=== PATIENT | female | born 1995 | race Caucasian/White ===

== ENCOUNTER 2024-11-10 12:56 | Outpatient (REF) | payer OTHER, SELFPAY ==
[2024-11-10 15:24] LABS: Abs Immature Grans 0.02 10^3/uL (0.0-0.06); Absolute Basophil Count 0.03 10^3/uL (0.0-0.2); Absolute Eosinophil Count 0.05 10^3/uL (0.0-0.7); Absolute Lymphocyte Count 2.28 10^3/uL (1.2-3.4); Absolute Neutrophil Count 3.67 10^3/uL (1.2-6.7); Basophils % 0.5 %; Eosinophils % 0.8 %; HCT 36.8 % (36.0-46.0); HGB 12.9 g/dL (11.2-15.7); Immature Grans % 0.3 %; Lymphocytes % 35.3 %; MCH 32.6 pg (27.0-33.0); MCHC 35.1 % (32.0-36.0); MCV 93 fL (80-95); MPV 10.7 fL (8.0-11.0); Monocytes % 6.2 %; Neutrophils % 56.9 %; Platelet Count 258 10^3/uL (130-400); RBC 3.96 10^6/uL (3.93-5.22); RDW 11.3 % (11.7-14.6); RDW-SD 38.8 fL; WBC 6.45 10^3/uL (4.4-10.8)
[2024-11-10 16:10] LABS: ALT 15 U/L (14-59); AST 16 U/L (15-37); Albumin 4.2 g/dL (3.4-5.0); Alkaline Phosphatase 50 U/L (46-116); Anion Gap 9.9 mmol/L (3-11); BUN 10 mg/dL (7-18); Bilirubin, Total 0.66 mg/dL (0.2-1.0); CO2 28.1 mmol/L (21.0-32.0); CREATININE 0.8 mg/dL (0.55-1.02); Calcium 9.3 mg/dL (8.5-10.1); Calculated LDL 106 mg/dL (<100); Chloride 103 mmol/L (98-107); Cholesterol 180 mg/dL (<200); Estimated GFR 101.59 (mL/min/1.73m2); Glucose 85 mg/dL (74-106); HDL Cholesterol 60 mg/dL (40-60); Potassium 3.9 mmol/L (3.5-5.1); Sodium 141 mmol/L (136-145); TSH (W/Ref FT4) 1.41 uIU/mL (0.36-3.74); Total Protein 7.4 g/dL (6.4-8.2); Triglyceride 71 mg/dL (<150); Vitamin D 25 Total 9.6 ng/mL (30-100)
== END 2024-11-10 12:57 | disposition home or self-care (01) ==
LOC: NCHCN 12:56
PROVIDERS: PCP Student in an Organized Health Care Education/Training Program; Visit Provider Student in an Organized Health Care Education/Training Program
DX: R53.83 Other fatigue (principal); Z13.220 Encounter for screening for lipoid disorders; E55.9 Vitamin D deficiency, unspecified
CPT/HCPCS: 80053; 80061; 82306; 84443; 85025

== ENCOUNTER 2025-04-19 16:13 | Outpatient (REF) | payer OTHER, SELFPAY ==
[2025-04-27 08:58] LABS: Amphetamine 56 ng/mL (Cutoff: 25); Amphetamines Interpretation Positive.; MDA (Ecstasy Metabolite) Negative ng/mL (Cutoff: 25); MDMA (Ecstasy) Negative ng/mL (Cutoff: 25); Methamphetamine Negative ng/mL (Cutoff: 25); Phentermine Negative ng/mL (Cutoff: 25); Pseudoephedrine/Ephedrine Negative ng/mL (Cutoff: 25)
== END 2025-04-19 16:14 | disposition home or self-care (01) ==
LOC: NCHCN 16:13
PROVIDERS: PCP Student in an Organized Health Care Education/Training Program; Visit Provider Student in an Organized Health Care Education/Training Program
DX: F90.9 Attention-deficit hyperactivity disorder, unspecified type (principal)
CPT/HCPCS: 80324

== ENCOUNTER 2025-09-14 14:37 | Outpatient (CLI) | payer OTHER, SELFPAY ==
--- NOTE | 2025-09-14 14:53 | DI.RAD_ITS ---
Exam(s) XR CHEST 2V PA LATERAL EXAM: XR CHEST 2V PA LATERAL CLINICAL HISTORY: sob, R06.02. TECHNIQUE: 2D digital imaging was performed. COMPARISON: No exams were available for comparison FINDINGS: 2 views: Heart size is normal. The mediastinum is not widened. Left lung is clear. Small density over the right lung base is most probably the breast nipple shadow. There are no pleural effusions. No fractures. No pneumothorax. IMPRESSION: No acute pulmonary findings.Density over the lower right lung field is probably the breast nipple shadow. DATA REPOSITORY: RADIATION DOSE DELIVERED:
== END 2025-09-14 14:57 ==
PROVIDERS: PCP Student in an Organized Health Care Education/Training Program; Visit Provider Nurse Practitioner Family
DX: R06.02 Shortness of breath (principal)
CPT/HCPCS: 71046

== ENCOUNTER 2025-09-15 10:19 | Outpatient (RCR) | payer OTHER, SELFPAY | END 2025-09-17 23:59 | disposition home or self-care (01) | LOC: CARDOPNVT 10:19 | PROVIDERS: PCP Student in an Organized Health Care Education/Training Program; Visit Provider Internal Medicine Cardiovascular Disease | DX: R55 Syncope and collapse (principal); R06.00 Dyspnea, unspecified | CPT/HCPCS: 93225 ==